=== PATIENT | female | born 1965 | race Two or more races ===

== ENCOUNTER 2018-07-07 10:08 | Day surgery (SDC) | payer OTHER ==
[2018-07-06 14:57] VITALS: BMI 25.0
[2018-07-07 12:31] VITALS: TEMP 97.6
[2018-07-07 13:02] VITALS: BP 125/65; PULSE 75
--- NOTE | 2018-07-09 11:04 | PATH ---
Surgical Pathology Report Patient Name: SPARKLE PUGA [facility]. Rec. #: [id number] /Age/Gender: 1965 (Age: 53) / F Account: [id number] Location: U-ENDOSCOPY Taken: 07/07/2018 Received: 07/08/2018 Reported: 07/09/2018 Physicians: Messi Magdaleno D.O. Specimen(s) Received A: ANTRUM B: BODY Clinical History Epigastric pain Postoperative diagnosis: Gastritis Final Diagnosis A. STOMACH, ANTRUM, BIOPSY: MODERATE CHRONIC ACTIVE GASTRITIS. IMMUNOSTAIN FOR H. PYLORI IS POSITIVE (MANY ORGANISMS) B. STOMACH, BODY, BIOPSY: MODERATE CHRONIC ACTIVE GASTRITIS. IMMUNOSTAIN FOR H. PYLORI IS POSITIVE (MANY ORGANISMS). Electronically Signed Adriel Jeronimo M.D. Gross Description A. Received in formalin, labeled "biopsy antrum" are 3 faulkner, irregular portions of soft tissue ranging from 0.2-0.3 cm. in greatest dimension. The specimens are submitted in toto in one cassette. B. Received in formalin, labeled "biopsy body" are 5 faulkner, irregular portions of soft tissue ranging from 0.2-0.5 cm. in greatest dimension. The specimens are submitted in toto in one cassette. 07/08/201807/08/2018
== END 2018-07-07 13:18 | disposition home or self-care (01) ==
LOC: JASU-ENDO 10:08
PROVIDERS: ATTEND Internal Medicine Gastroenterology
PROC: 0DB68ZX Excision of Stomach, Via Natural or Artificial Opening Endoscopic, Diagnostic (ICD-10-PCS; principal; 2018-07-07 12:45)
DX: K29.70 Gastritis, unspecified, without bleeding (principal)
CPT/HCPCS: 84703; 88305-TC; 88342-TC

== ENCOUNTER 2018-07-09 12:53 | Emergency (ER) | payer OTHER ==
[2018-07-09 12:58] VITALS: BP 129/65; PULSE 75; TEMP 97.6; BMI 25.9
--- NOTE | 2018-07-09 14:05 | PDOC ---
History of Present Illness - General Chief Complaint: Pain, Acute Stated Complaint: ABD. PAIN Time Seen by Provider: 07/09/18 13:52 History Source: Patient - History of Present Illness Timing/Duration: reports: constant, getting worse Past History - Past Medical History Allergies/Adverse Reactions: Allergies Allergy/AdvReac Type Severity Reaction Status Date / Time No Known Drug Allergies Allergy Verified 07/09/18 12:54 shrimp Allergy Verified 07/09/18 12:54 Home Medications: Ambulatory Orders Omeprazole Magnesium [Prilosec (OTC)] 20 mg PO DAILY #30 tablet 06/24/13 Omeprazole 20 mg PO BID #60 tablet. 07/09/18 Polyethylene Glycol 3350 [Miralax (For Daily Use) -] 17 gm PO DAILY #1 bottle Anemia: No Asthma: No Cancer: No Cardiac Disorders: No CVA: No COPD: Yes CHF: No Dementia: No Diabetes: No GI Disorders: No Disorders: No HTN: No Hypercholesterolemia: Yes (NO MEDS) Liver Disease: No Seizures: No Thyroid Disease: No - Surgical History Abdominal Surgery: Yes Appendectomy: No Cardiac Surgery: No Cholecystectomy: No Lung Surgery: No Neurologic Surgery: No Orthopedic Surgery: No - Immunization History Immunization Up to Date: Yes - Suicide/Smoking/Psychosocial Hx Smoking History: Never smoked Have you smoked in the past 12 months: No Hx Alcohol Use: No Drug/Substance Use Hx: No Substance Use Type: None Hx Substance Use Treatment: No Review of Systems - Review of Systems Constitutional: No: Chills, Fever ABD/GI: Yes: Nausea. No: Blood Streaked Bowels, Constipated, Diarrhea, Rectal Bleeding, Vomiting : No: Dysuria *Physical Exam - Vital Signs Last Vital Signs Temp Pulse Resp BP Pulse Ox 97.6 F 75 18 129/65 100 07/09/18 12:54 07/09/18 12:54 07/09/18 12:54 07/09/18 12:54 07/09/18 12:54 - Physical Exam General Appearance: Yes: Appropriately Dressed. No: Apparent Distress HEENT: positive: Normal Voice Neck: positive: Supple Respiratory/Chest: positive: Lungs Clear, Normal Breath Sounds. negative: Respiratory Distress Cardiovascular: positive: Regular Rate, S1, S2 Gastrointestinal/Abdominal: positive: Normal Bowel Sounds, Tender (minimal to epigastrium), Soft. negative: Distended, Guarding, Rebound Musculoskeletal: negative: CVA Tenderness Integumentary: positive: Dry, Warm Neurologic: positive: Fully Oriented, Alert, Normal Mood/Affect ED Treatment Course - LABORATORY CBC & Chemistry Diagram: 07/09/18 14:25 07/09/18 14:25 Medical Decision Making - Medical Decision Making 07/09/18 14:14 53-year-old female, denies any past medical history, here with worsening non- radiating epigastric pain 3 days, unable to describe, constant and worse with food. Also reports nausea and excessive belching. No vomiting, change in bowel movements, melena, BRBPR, dysuria, fever or chills. Seen by GI 3 days ago and had EGD, which per records, showed moderate chronic active gastritis and was positive for H. pylori See exam Epigastric pain +gastritis w/ hpylori on EGD 07/07 Exam remarkable for ttp to epigastrium -IVF -pain control -will start on triple therapy -GI c/s to discuss dispo 07/09/18 14:38 Case d/w Dr Magdaleno of GI, states hpylori is an old dx and that pt has been tx multiple times w/ both triple and quadruple therapy. Recommends dose of protonix here and wants patient to go home only on a PPI 20 mg twice a day and to follow-up with him in office for further management 07/09/18 16:04 Labs wnl. XR neg for free air but demonstrates significant stool burden. On reassessment, pt reports sig improvement in epigastric pain w/ meds. States recently she has had to strain to have BM. Will dc w/ miralax. Pt to f/u with GI *DC/Admit/Observation/Transfer Diagnosis at time of Disposition: Epigastric abdominal pain Constipation Qualifiers: Constipation type: unspecified constipation type Qualified Code(s): K59.00 - Constipation, unspecified - Discharge Dispostion Disposition: HOME Condition at time of disposition: Improved - Prescriptions Prescriptions: Omeprazole 20 mg PO BID #60 tablet. Polyethylene Glycol 3350 [Miralax (For Daily Use) -] 17 gm PO DAILY #1 bottle - Referrals Referrals: Janet Alonso MD [Primary Care Provider] - - Patient Instructions Printed Discharge Instructions: Constipation Additional Instructions: Your labs were normal today. Your x-ray showed significant stool in your colon. Take MiraLAX as directed for constipation Take omeprazole as prescribed and follow-up with Dr. Magdaleno this week Print Language: UZBEK - Post Discharge Activity Forms/Work/School Notes: Back to Work
[2018-07-09] MEDS ORDERED: FAMOTIDINE 20 MG/50 ML IVPB 20 MG/50 ML MG IVPB ONE ×2 (14:09→14:17)
[2018-07-09] MEDS ORDERED: CLARITHROMYCIN 500 MG TABLET (UD) PO ONE (14:11)
[2018-07-09] MEDS ORDERED: PANTOPRAZOLE 40 MG TABLET (FP) PO ONE (14:11)
[2018-07-09] MEDS ORDERED: AMOXICILLIN 500 MG CAPSULE (FP) PO ONE ×2 (14:13)
[2018-07-09] MEDS ORDERED: PANTOPRAZOLE 40 MG TABLET (FP) ONE (14:15)
[2018-07-09 14:35] LABS: BASO % 0.7 % (0-2.0); HEMATOCRIT 39.8 % (32.4-45.2); HEMOGLOBIN 13.6 GM/dL (10.7-15.3); LYMPH % 38.3 % (8-40); MCH 32.5 pg (25.7-33.7); MCHC 34.3 g/dl (32.0-36.0); MEAN PLT VOLUME 9.2 fl (7.5-11.1); MONO % 5.8 % (3.8-10.2); NEUT % 53.2 % (42.8-82.8); PLATELET COUNT 188 K/MM3 (134-434); RBC 4.19 M/mm3 (3.60-5.2); RDW 12.8 % (11.6-15.6); WHITE BLOOD COUNT 5.5 K/mm3 (4.0-10.0)
[2018-07-09] MEDS ORDERED: SODIUM CHLORIDE 1,000 ML IV STA (14:37)
[2018-07-09 15:00] LABS: EPI CELLS 2.6 /HPF (0-5/HPF); URINE APPEARANCE CLEAR; URINE BACTERIA 143.4 /hpf (NEGATIVE); URINE BILIRUBIN NEGATIVE (NEGATIVE); URINE CASTS 1 /lpf (0-8); URINE COLOR YELLOW; URINE GLUCOSE (UA) NEGATIVE (NEGATIVE); URINE KETONE NEGATIVE (NEGATIVE); URINE LEUK ESTERASE 2+ (NEGATIVE); URINE NITRITE NEGATIVE (NEGATIVE); URINE PROTEIN NEGATIVE (NEGATIVE); URINE RBC 1 /hpf (0-4); URINE UROBILINOGEN 0.2 mg/dL (0.2-1.0); URINE WBC 9 /hpf (0-5)
[2018-07-09 15:04] LABS: ALBUMIN 4.5 g/dl (3.4-5.0); ALK PHOS 64 U/L (45-117); ANION GAP 6 MMOL/L (8-16); BILIRUBIN,TOTAL 0.6 mg/dL (0.2-1); BLOOD UREA NITROGEN 9 mg/dL (7-18); CALCIUM 9.9 mg/dL (8.5-10.1); CHLORIDE 105 mmol/L (98-107); CO2 29 mmol/L (21-32); CREATININE 0.6 mg/dL (0.55-1.3); GLUCOSE,RANDOM 84 mg/dL (74-106); LIPASE 144 U/L (73-393); SGOT/AST 18 U/L (15-37); SGPT/ALT 28 U/L (13-61); SODIUM 140 mmol/L (136-145); TOT PROT 8.6 g/dl (6.4-8.2)
--- NOTE | 2018-07-09 16:39 | PDOC ---
*Physical Exam - Vital Signs Last Vital Signs Temp Pulse Resp BP Pulse Ox 97.6 F 75 18 129/65 100 07/09/18 12:54 07/09/18 12:54 07/09/18 12:54 07/09/18 12:54 07/09/18 12:54 ED Treatment Course - LABORATORY CBC & Chemistry Diagram: 07/09/18 14:25 07/09/18 14:25 - ADDITIONAL ORDERS Additional order review: Laboratory Results 07/09/18 07/09/18 14:40 14:25 Sodium 140 Potassium 4.0 Chloride 105 Carbon Dioxide 29 Anion Gap 6 L BUN 9 Creatinine 0.6 Creat Clearance w eGFR 104.98 Random Glucose 84 Calcium 9.9 Total Bilirubin 0.6 AST 18 ALT 28 Alkaline Phosphatase 64 Total Protein 8.6 H Albumin 4.5 Lipase 144 Urine Color Yellow Urine Appearance Clear Urine pH 7.0 Ur Specific Bowman 1.004 L Urine Protein Negative Urine Glucose (UA) Negative Urine Ketones Negative Urine Blood Negative Urine Nitrite Negative Urine Bilirubin Negative Urine Urobilinogen 0.2 Ur Leukocyte Esterase 2+ H Urine WBC (Auto) 9 Urine RBC (Auto) 1 Urine Casts (Auto) 1 U Epithel Cells (Auto) 2.6 Urine Bacteria (Auto) 143.4 07/09/18 14:25 RBC 4.19 MCV 95.0 MCHC 34.3 RDW 12.8 MPV 9.2 Neutrophils % 53.2 Lymphocytes % 38.3 Monocytes % 5.8 Eosinophils % 2.0 Basophils % 0.7 - RADIOLOGY Radiology Studies Ordered: Category Date Time Status ABDOMEN FLAT & UPRIGHT [RAD] Stat Radiology 07/09/18 14:59 Taken - Medications Given in the ED: ED Medications Discontinued Medications Generic Name Dose Route Start Last Admin Trade Name Freq PRN Reason Stop Dose Admin Amoxicillin 1,000 mg 07/09/18 14:13 07/09/18 14:40 Amoxicillin - PO 07/09/18 14:14 Not Given ONCE ONE Clarithromycin 500 mg 07/09/18 14:11 07/09/18 14:40 Biaxin - PO 07/09/18 14:12 Not Given ONCE ONE Famotidine/Sodium Chloride 20 mg in 50 mls @ 100 mls/hr 07/09/18 14:09 14:18 Pepcid 20 Mg Premixed Ivpb - IVPB 07/09/18 14:38 100 mls/hr ONCE ONE Administration Sodium Chloride 1,000 mls @ 1,000 mls/hr 07/09/18 14:37 07/09/18 14:40 Normal Saline - IV 07/09/18 15:36 1,000 mls/hr ASDIR STA Administration Pantoprazole Sodium 40 mg 07/09/18 14:11 07/09/18 14:18 Protonix - PO 07/09/18 14:12 40 mg ONCE ONE Administration *DC/Admit/Observation/Transfer Diagnosis at time of Disposition: Epigastric abdominal pain Constipation Qualifiers: Constipation type: unspecified constipation type Qualified Code(s): K59.00 - Constipation, unspecified - Discharge Dispostion Disposition: HOME Condition at time of disposition: Improved - Prescriptions Prescriptions: Omeprazole 20 mg PO BID #60 tablet. Polyethylene Glycol 3350 [Miralax (For Daily Use) -] 17 gm PO DAILY #1 bottle - Referrals Referrals: Janet Alonso MD [Primary Care Provider] - - Patient Instructions Printed Discharge Instructions: Constipation Additional Instructions: Your labs were normal today. Your x-ray showed significant stool in your colon. Take MiraLAX as directed for constipation Take omeprazole as prescribed and follow-up with Dr. Magdaleno this week Print Language: YI - Post Discharge Activity Forms/Work/School Notes: Back to Work
== END 2018-07-09 16:26 | disposition home or self-care (01) ==
LOC: JER 12:53
PROC: 3E0337Z Introduction of Electrolytic and Water Balance Substance into Peripheral Vein, Percutaneous Approach (ICD-10-PCS; principal; 2018-07-09)
PROC: 3E033GC Introduction of Other Therapeutic Substance into Peripheral Vein, Percutaneous Approach (ICD-10-PCS; 2018-07-09)
DX: K59.00 Constipation, unspecified (principal); K29.60 Other gastritis without bleeding; B96.81 Helicobacter pylori [H. pylori] as the cause of diseases classified elsewhere
CPT/HCPCS: 36415; 74019-TC-FY; 80053; 81003; 83690; 85025; 99282-25; J7030

== ENCOUNTER 2018-09-08 08:00 | Day surgery (SDC) | payer OTHER ==
[2018-09-07 15:10] VITALS: BMI 25.9
[2018-09-08] MEDS ORDERED: SIMETHICONE 40 MG/0.6 ML BOTTLE ONE (09:24)
[2018-09-08 09:59] VITALS: TEMP 98
[2018-09-08 10:46] VITALS: BP 118/60; PULSE 68
--- NOTE | 2018-09-09 16:20 | PATH ---
Surgical Pathology Report Patient Name: SPARKLE PUGA [facility]. Rec. #: [id number] /Age/Gender: 1965 (Age: 53) / F Account: [id number] Location: [facility]-ENDOSCOPY Taken: 09/08/2018 Received: 09/08/2018 Reported: 09/09/2018 Physicians: Messi Magdaleno D.O. Specimen(s) Received A: BX CECUM-APPENDICEAL ORIFICE B: BX RIGHT COLON C: BX HEPATIC FLEXURE POLYP D: POLYP SIGMOID Clinical History Abdominal pain, screening Postoperative diagnosis: Diverticulosis, colon polyps, internal hemorrhoids Final Diagnosis A. CECUM-APPENDICEAL ORIFICE, BIOPSY: COLONIC MUCOSAL WITH ACUTE INFLAMMATION AND FOCAL ACUTE CRYPTITIS. MINIMAL CRYPT ARCHITECTURAL DISTORTION PRESENT. B. RIGHT COLON POLYP, POLYPECTOMY: TUBULAR ADENOMA. C. HEPATIC FLEXURE POLYP, BIOPSY: COLONIC MUCOSA WITH REACTIVE LYMPHOID AGGREGATE IN THE LAMINA PROPRIA. D. SIGMOID POLYP, BIOPSY: POLYPOID COLONIC MUCOSA WITH REACTIVE LYMPHOID FOLLICLE AND FOCAL SURFACE HYPERPLASTIC CHANGE. Electronically Signed Tori Trujillo M.D. Gross Description A. Received in formalin, labeled "biopsy cecum-appendiceal orifice" are 2 faulkner, irregular portions of soft tissue averaging 0.2 cm. in greatest dimension. The specimens are submitted in toto in one cassette. B. Received in formalin, labeled "polyp right colon" are 2 faulkner, irregular portions of soft tissue measuring 0.1 and 0.6 cm. in greatest dimension. The specimens are submitted in toto in one cassette. C. Received in formalin, labeled "polyp hepatic flexure" are 2 faulkner, irregular portions of soft tissue averaging 0.2 cm. in greatest dimension. The specimens are submitted in toto in one cassette. D. Received in formalin, labeled "polyp sigmoid" is a faulkner, irregular portion of soft tissue measuring 0.3 cm. in greatest dimension. The specimen is submitted in toto in one cassette. 09/08/201809/08/2018
== END 2018-09-08 10:44 | disposition home or self-care (01) ==
LOC: JASU-ENDO 08:00
PROVIDERS: ATTEND Internal Medicine Gastroenterology
PROC: 0DBL8ZX Excision of Transverse Colon, Via Natural or Artificial Opening Endoscopic, Diagnostic (ICD-10-PCS; 2018-09-08)
PROC: 0DBN8ZX Excision of Sigmoid Colon, Via Natural or Artificial Opening Endoscopic, Diagnostic (ICD-10-PCS; principal; 2018-09-08 09:00)
DX: Z12.11 Encounter for screening for malignant neoplasm of colon (principal); K57.30 Diverticulosis of large intestine without perforation or abscess without bleeding; K64.8 Other hemorrhoids; D12.5 Benign neoplasm of sigmoid colon; D12.3 Benign neoplasm of transverse colon; E11.9 Type 2 diabetes mellitus without complications
CPT/HCPCS: 88305-TC

== ENCOUNTER 2021-05-02 10:18 | Emergency (ER) | payer OTHER ==
[2021-05-02 10:31] VITALS: BP 115/66; PULSE 94; TEMP 98.5; BMI 25.7
[2021-05-02] MEDS ORDERED: ACETAMINOPHEN 1000 MG/100 ML BAG IVPB ONE (10:48)
[2021-05-02] MEDS ORDERED: ACETAMINOPHEN INJECTION 100 ML IVPB ONE (10:53)
[2021-05-02 11:28] LABS: BASO % 0.4 % (0-2.0); EOS % 0.9 % (0-4.5); HEMATOCRIT 40.7 % (32.4-45.2); HEMOGLOBIN 13.6 GM/dL (10.7-15.3); LYMPH % 10.4 % (8-40); MCH 31.5 pg (25.7-33.7); MCHC 33.3 g/dl (32.0-36.0); MEAN CELL VOLUME 94.4 fl (80-96); MEAN PLT VOLUME 9.4 fl (7.5-11.1); MONO % 7.4 % (3.8-10.2); NEUT % 80.9 % (42.8-82.8); PLATELET COUNT 191 10^3/uL (134-434); RBC 4.32 M/mm3 (3.60-5.2); RDW 12.9 % (11.6-15.6); WHITE BLOOD COUNT 4.8 K/mm3 (4.0-10.0)
[2021-05-02 12:28] LABS: ALBUMIN 4.6 g/dl (3.4-5.0); BILIRUBIN,TOTAL 0.9 mg/dL (0.2-1); CREATININE 0.4 mg/dL (0.55-1.3); MAGNESIUM 2.2 mg/dL (1.8-2.4); TOT PROT 8.4 g/dl (6.4-8.2)
[2021-05-02 12:40] LABS: EPI CELLS 13 /uL (0-25.1); HYALINE CASTS 0 /uL (0-3.1); PH,URINE 7.5 (5.0-8.0); URINE APPEARANCE CLEAR; URINE BACTERIA 73 /uL (0-1359); URINE BILIRUBIN NEGATIVE (NEGATIVE); URINE COLOR YELLOW; URINE GLUCOSE (UA) NEGATIVE (NEGATIVE); URINE KETONE NEGATIVE (NEGATIVE); URINE LEUK ESTERASE 2+ (NEGATIVE); URINE NITRITE NEGATIVE (NEGATIVE); URINE PROTEIN NEGATIVE (NEGATIVE); URINE RBC 3 /uL (0-23.9); URINE UROBILINOGEN 0.2 mg/dL (0.2-1.0); URINE WBC 47 /uL (0-25.8)
[2021-05-02 12:50] LABS: HCG,QUALITATIVE URINE Negative
== END 2021-05-02 15:45 | disposition home or self-care (01) ==
LOC: JER 10:18
PROC: 3E0333Z Introduction of Anti-inflammatory into Peripheral Vein, Percutaneous Approach (ICD-10-PCS; principal; 2021-05-02)
DX: R07.9 Chest pain, unspecified (principal)
CPT/HCPCS: 36415; 71046-TC-FY; 80053; 81003; 82550; 82553; 83690; 83735; 84484; 84703; 85025; 87086; 93005; 93010; 99285-25

== ENCOUNTER 2021-06-29 12:06 | Emergency (ER) | payer OTHER ==
[2021-06-29 12:14] VITALS: BP 121/74; PULSE 82; TEMP 98.2; BMI 26.0
[2021-06-29] MEDS ORDERED: KETOROLAC TROMETHAMINE 30 MG/1 ML VIAL IVPB ONE (13:14)
[2021-06-29] MEDS ORDERED: SODIUM CHLORIDE 0.9% 500 ML INFUS.BAG IV ONE (13:18)
[2021-06-29] MEDS ORDERED: KETOROLAC TROMETHAMINE 30 MG/1 ML VIAL ONE (13:25)
[2021-06-29 13:53] LABS: BASO % 1.2 % (0-2.0); EOS % 2.5 % (0-4.5); HEMATOCRIT 41.3 % (32.4-45.2); HEMOGLOBIN 13.9 GM/dL (10.7-15.3); LYMPH % 43.8 % (8-40); MCH 31.6 pg (25.7-33.7); MCHC 33.7 g/dl (32.0-36.0); MEAN CELL VOLUME 93.9 fl (80-96); MEAN PLT VOLUME 9.6 fl (7.5-11.1); MONO % 8.1 % (3.8-10.2); NEUT % 44.4 % (42.8-82.8); PLATELET COUNT 193 10^3/uL (134-434); RDW 12.9 % (11.6-15.6); WHITE BLOOD COUNT 3.8 K/mm3 (4.0-10.0)
[2021-06-29 14:10] LABS: CHLORIDE 105 mmol/L (98-107); SODIUM 141 mmol/L (136-145)
[2021-06-29 14:13] LABS: CALCIUM 9.6 mg/dL (8.5-10.1)
[2021-06-29 14:14] LABS: ALBUMIN 4.4 g/dl (3.4-5.0); ANION GAP 4 MMOL/L (8-16); BLOOD UREA NITROGEN 7.4 mg/dL (7-18); CO2 31 mmol/L (21-32); GLUCOSE,RANDOM 93 mg/dL (74-106)
[2021-06-29 14:17] LABS: SGOT/AST 22 U/L (15-37); SGPT/ALT 34 U/L (13-61)
[2021-06-29 14:18] LABS: BILIRUBIN,TOTAL 1.1 mg/dL (0.2-1)
[2021-06-29 14:19] LABS: TOT PROT 8.2 g/dl (6.4-8.2)
[2021-06-29 14:20] LABS: ALK PHOS 64 U/L (45-117)
[2021-06-29 14:30] LABS: CREATININE 0.7 mg/dL (0.55-1.3)
== END 2021-06-29 16:50 | disposition home or self-care (01) ==
LOC: JER 12:06
PROC: 3E033GC Introduction of Other Therapeutic Substance into Peripheral Vein, Percutaneous Approach (ICD-10-PCS; principal; 2021-06-29)
DX: M54.2 Cervicalgia (principal)
CPT/HCPCS: 36415; 71046-TC-FY; 80053; 84484; 85025; 93005; 93010; 99285-25

== ENCOUNTER 2023-01-02 05:08 | Day surgery (SDC) | payer OTHER ==
[2022-12-26 11:58] VITALS: BMI 26.4
[2023-01-02 08:37] VITALS: TEMP 97.8
[2023-01-02 10:06] VITALS: BP 128/61; PULSE 77; RESP 15
== END 2023-01-02 10:11 | disposition home or self-care (01) ==
LOC: JASU-ENDO 05:08
PROVIDERS: ATTEND Internal Medicine Gastroenterology
PROC: 0DB78ZX Excision of Stomach, Pylorus, Via Natural or Artificial Opening Endoscopic, Diagnostic (ICD-10-PCS; 2023-01-02)
PROC: 0DB98ZX Excision of Duodenum, Via Natural or Artificial Opening Endoscopic, Diagnostic (ICD-10-PCS; principal; 2023-01-02 09:30)
DX: K29.50 Unspecified chronic gastritis without bleeding (principal)
CPT/HCPCS: 88305-TC; 88342-TC

== ENCOUNTER 2023-10-07 05:17 | Day surgery (SDC) | payer OTHER ==
[2023-10-01 13:47] VITALS: BMI 28.7
[2023-10-07 09:26] VITALS: TEMP 97.9
[2023-10-07 10:03] VITALS: BP 109/56; PULSE 64; RESP 16
== END 2023-10-07 10:20 | disposition home or self-care (01) ==
LOC: JASU-ENDO 05:17
PROVIDERS: ATTEND Internal Medicine Gastroenterology
PROC: 0DBK8ZX Excision of Ascending Colon, Via Natural or Artificial Opening Endoscopic, Diagnostic (ICD-10-PCS; principal; 2023-10-07 08:30)
DX: Z12.11 Encounter for screening for malignant neoplasm of colon (principal); D12.2 Benign neoplasm of ascending colon; K64.8 Other hemorrhoids; K57.30 Diverticulosis of large intestine without perforation or abscess without bleeding; Z86.010 Personal history of colon polyps
CPT/HCPCS: 88305-TC